=== PATIENT | female | born 1960 | race Caucasian/White ===

== ENCOUNTER → 2016-06-29 | Outpatient (CLI) | payer MEDICARE | LOC: RAD 09:04 | PROVIDERS: ATTEND Family Medicine | DX: R07.89 Other chest pain (principal); J98.11 Atelectasis | CPT/HCPCS: 71260; Q9967 ==

== ENCOUNTER → 2016-07-10 | Outpatient (CLI) | payer MEDICARE ==
[2016-07-10 17:13] LABS: MEAN CORPUSCULAR HEMOGLOBIN 30.4 PG (26.0-34.0); MEAN CORPUSCULAR HGB CONC 33.4 g/dL (31.0-37.0); MEAN CORPUSCULAR VOLUME 91 FL (80-100); MEAN PLATELET VOLUME 10.8 FL (6.0-9.5); PLATELET COUNT 219 10^3uL (150-450); WHITE BLOOD COUNT 6.14 10^3uL (4.0-11.0)
[2016-07-10 17:40] LABS: ALBUMIN 3.9 g/dL (3.4-5.0); CALCULATED IONIZED CALCIUM 3.7 mg/dL (3.8-4.6); TOTAL PROTEIN 7.4 g/dL (6.4-8.5)
[2016-07-10 17:51] LABS: BAND NEUTROPHILS % 0 % (0-6); EOSINOPHILS % 4 % (0-4); LYMPHOCYTES # 1.4 #; MONOCYTES # 0.4 #; MONOCYTES % 7 % (3-11); RBC MORPH NORMAL (NORMAL); SEGMENTED NEUTROPHILS % 66 % (51-67); TOTAL CELLS COUNTED 100
[2016-07-11 16:27] LABS: HEPATITIS A ANTIBODY IGM Negative; HEPATITIS B CORE ABY IGM Negative; HEPATITIS B SURFACE ANTIGEN C Negative
[2016-07-12 13:37] LABS: ANGIO-CONVERTING ENZYMEr 28 U/L (8 - 53)
== END ==
LOC: LAB 16:45
PROVIDERS: ATTEND Internal Medicine Hematology & Oncology
DX: R16.1 Splenomegaly, not elsewhere classified (principal); R68.89 Other general symptoms and signs; R53.83 Other fatigue
CPT/HCPCS: 36415; 80053; 80074; 82164; 83615; 85007; 85027; 86038; 86431; 88184; 88185

== ENCOUNTER 2016-07-22 08:34 | Emergency (ER) | payer MEDICARE ==
[~2016-07-22] VITALS: Ht 170.2 cm; Wt 54.5 kg
[2016-07-22] MEDS ORDERED: morphine INJ 4 MG/ML 1 ML SYRINGE IV ONE (08:50)
[2016-07-22] MEDS ORDERED: KETOROLAC 30 MG/ML (TORADOL) 1 ML VIAL IV ONE (08:50)
[2016-07-22] MEDS ORDERED: NS IV 500 ML 500 ML IV SCH (08:50)
[2016-07-22] MEDS ORDERED: METOCLOPRAMIDE 10 MG/2 ML (REGLAN) VIAL IV ONE (08:50)
[2016-07-22] MEDS ORDERED: diphenhydrAMINE 50 MG/ML INJ (BENADRYL) IV ONE ×2 (08:50→10:05)
[2016-07-22] MEDS ORDERED: HYDROmorphone 1 MG/ML (DILAUDID) SYRINGE IV ONE (10:00)
--- NOTE | 2016-07-22 10:30 | NUR ---
MEPILEX DRESSING OBTAINED FROM MED SURG DEPT & APPLIED TO WOUND JUST ABOVE MEDIAL BUTTOCKS/LOWER BACK. DSG 4X4 SIZE. CL
[2016-07-22 20:17] VITALS: BP 105/62
== END 2016-07-22 10:37 | disposition home or self-care (01) ==
LOC: EDUNIT# 08:34 → ED 08:37
DX: G43.909 Migraine, unspecified, not intractable, without status migrainosus (principal); L89.303 Pressure ulcer of unspecified buttock, stage 3
CPT/HCPCS: 96361; 96374; 96375; 96376; 99284; J1170; J1200; J1885; J2270; J2765; J7040; 99283

== ENCOUNTER → 2016-07-30 | Outpatient (CLI) | payer MEDICARE | LOC: RAD 07:35 | PROVIDERS: ATTEND Surgery | DX: R10.12 Left upper quadrant pain (principal); R93.5 Abnormal findings on diagnostic imaging of other abdominal regions, including retroperitoneum | CPT/HCPCS: 74176 ==

== ENCOUNTER → 2016-08-16 | Outpatient (CLI) | payer MEDICARE ==
[2016-08-16 14:21] LABS: BASOPHILS % (AUTO) 1 % (0-2); EOSINOPHILS # (AUTO) 0.2 10^3uL; EOSINOPHILS % (AUTO) 6 % (0-4); LYMPHOCYTES # (AUTO) 1.4 X10^3; MEAN CORPUSCULAR HEMOGLOBIN 29.4 PG (26.0-34.0); MEAN CORPUSCULAR VOLUME 93 FL (80-100); MEAN PLATELET VOLUME 11.2 FL (6.0-9.5); MONOCYTES # (AUTO) 0.3 X10^3; MONOCYTES % (AUTO) 9 % (3-11); NEUTROPHILS # (AUTO) 1.4 X10^3; NEUTROPHILS % (AUTO) 43 % (51-67); PLATELET COUNT 182 10^3uL (150-450); WHITE BLOOD COUNT 3.28 10^3uL (4.0-11.0)
[2016-08-16 14:26] LABS: ALBUMIN 3.2 g/dL (3.4-5.0); TOTAL PROTEIN 6.5 g/dL (6.4-8.5)
[2016-08-16 14:41] LABS: MEAN CORPUSCULAR HGB CONC 31.6 g/dL (31.0-37.0)
[2016-08-16 19:48] LABS: Prealbumin 12 mg/dL (16-38)
[2016-08-16 20:16] LABS: VITAMIN B 12 >2000 pg/mL (213-816)
== END ==
LOC: LAB 13:47
PROVIDERS: ATTEND Surgery
DX: Z98.84 Bariatric surgery status (principal); D73.89 Other diseases of spleen
CPT/HCPCS: 36415; 80053; 82306; 82607; 84134; 84446; 84590; 84597; 85025

== ENCOUNTER 2016-08-24 11:32 | Emergency (ER) | payer MEDICARE ==
[~2016-08-24] VITALS: Ht 170.2 cm; Wt 57.2 kg
[2016-08-24 11:36] VITALS: BP 119/79
[2016-08-24] MEDS ORDERED: HYDROmorphone 1 MG/ML (DILAUDID) SYRINGE IV ONE ×2 (11:55→13:50)
[2016-08-24] MEDS ORDERED: ONDANSETRON 2 MG/ML (Z0FRAN) 2 ML VIAL IV ONE (11:55)
[2016-08-24] MEDS ORDERED: SODIUM CHLORIDE FLUSH 10 ML SYR IV PRN (12:15)
[2016-08-24] MEDS ORDERED: SODIUM CHLORIDE FLUSH 3 ML SYR IV PRN (12:15)
[2016-08-24 12:17] LABS: BASOPHILS % (AUTO) 1 % (0-2); EOSINOPHILS # (AUTO) 0.1 10^3uL; EOSINOPHILS % (AUTO) 4 % (0-4); MEAN CORPUSCULAR HEMOGLOBIN 29.5 PG (26.0-34.0); MEAN CORPUSCULAR HGB CONC 32.1 g/dL (31.0-37.0); MEAN CORPUSCULAR VOLUME 92 FL (80-100); MEAN PLATELET VOLUME 12.4 FL (6.0-9.5); MONOCYTES # (AUTO) 0.2 X10^3; MONOCYTES % (AUTO) 8 % (3-11); NEUTROPHILS # (AUTO) 1.5 X10^3; NEUTROPHILS % (AUTO) 52 % (51-67); PLATELET COUNT 80 10^3uL (150-450); WHITE BLOOD COUNT 2.85 10^3uL (4.0-11.0)
[2016-08-24 12:19] LABS: BILIRUBIN,URINE Negative (Negative); CLARITY,URINE Clear; COLOR,URINE Yellow; GLUCOSE, URINE (UA) Negative (Negative); LEUKOCYTE ESTERASE ,URINE Negative (Negative); PH,URINE 7.5 (5.0 - 8.0); UROBILINOGEN,URINE 0.2 mg/dL (0.2-1.0)
[2016-08-24 12:24] LABS: ALBUMIN 3.1 g/dL (3.4-5.0); CALCULATED IONIZED CALCIUM 3.8 mg/dL (3.8-4.6); TOTAL PROTEIN 6.6 g/dL (6.4-8.5)
[2016-08-24] MEDS ORDERED: PROMETHAZINE HCL INJ 25 MG in SODIUM CHLORIDE 25 ML IV ONE (12:45)
--- NOTE | 2016-08-24 13:38 | NUR ---
pt asks for blanket
--- NOTE | 2016-08-24 13:44 | NUR ---
pt states nausea is better
--- NOTE | 2016-08-24 14:10 | NUR ---
pt and mother stated they were out of dilaudid. told pt that dr cardoza ordered the ultra, for take home meds
== END 2016-08-24 13:55 | disposition home or self-care (01) ==
LOC: ED 11:33
DX: R10.32 Left lower quadrant pain (principal); R10.31 Right lower quadrant pain; R11.2 Nausea with vomiting, unspecified; D72.819 Decreased white blood cell count, unspecified; D69.6 Thrombocytopenia, unspecified; R19.04 Left lower quadrant abdominal swelling, mass and lump
CPT/HCPCS: 36415; 76705; 80053; 81003; 85025; 86140; 99284; J1170; J2405; J2550; J7030; 96361; 96365; 96375; 96376

== ENCOUNTER → 2016-08-28 | Outpatient (REF) | payer MEDICARE ==
[~2016-08-28] MED LIST: BUSP5TAB59 PO; CALC200T5 PO; CARI250T PO; CEPH500T PO; CLON0.5T3; CRB100CT PO; CYAN100088 PO; CYCL-265 PO; DICL100G13 TOP; DOCU-163 PO; DULO20CA PO; ESOM20CA; ESOM40CA52 PO; ESTROVEN ENER400 MCG PO; FENTANYL PATCH PO; FERR159T3 PO; FURO-124 PO; GBPN600T PO; HLP.5T; HYDR-3754 PO; HYDR8TAB24 PO; LEVO25TA5 PO; MECL-105 PO; METH750T3 PO; METO50TA7; MIRT15TA98 PO; MULT-954 PO; ONDA4TAB8 PO; POTA25TA7 PO; SERT25TA PO; SERT50TA9 PO; TEMA15CA6 PO; TOPI200T8 PO; TRAZ100T92 PO; TRM50T PO
== END ==
LOC: LAB 15:08
PROVIDERS: ATTEND Family Medicine
DX: R19.7 Diarrhea, unspecified (principal)
CPT/HCPCS: 87507

== ENCOUNTER 2016-09-25 08:50 | Outpatient (RCR) | payer MEDICARE ==
[2016-09-26] MEDS ORDERED: EST45C VG (14:03)
[2016-09-26] MEDS ORDERED: TRM50T PO (14:03)
[2016-09-26] MEDS ORDERED: TRAZ-28 PO (14:03)
[2016-09-26] MEDS ORDERED: FNT75TD TD (16:55)
[2016-09-26] MEDS ORDERED: HDR2T PO (16:55)
[2016-09-26] MEDS ORDERED: FERR325T36 PO (16:55)
[2016-09-26] MEDS ORDERED: POTA-57 PO (16:55)
[2016-09-28] MEDS ORDERED: TRM50T PO (17:25)
[2016-10-05] MEDS ORDERED: HYDR-3702 PO (17:13)
== END 2016-10-31 19:23 | disposition home or self-care (01) ==
LOC: LAB 08:50 → EDSTATUS 09-27 07:58 → LAB 10-31 19:23
PROVIDERS: ATTEND Surgery
DX: D73.89 Other diseases of spleen (principal)
CPT/HCPCS: 36415; 84134; 86850; 86900; 86901; 86920

== ENCOUNTER 2016-09-26 08:19 | Inpatient (IN) | payer MEDICARE ==
[2016-09-26] VITALS (11 sets, daily range): BP systolic 100–121; BP diastolic 57–78
[~2016-09-26] VITALS: Ht 165.1 cm; Wt 53.2 kg
[~2016-09-26 08:19] MED LIST changes: +LACTATED RINGERS 1,000 ML IV SCH; +SCOPOLAMINE 1.5 MG (TRANSDERM-SCOP) PATCH TD ONE; +SODIUM CHLORIDE FLUSH 3 ML SYR IV PRN; +SODIUM CHLORIDE VIAL (PF) 10 ML IV ONE; +VANCOMYCIN 1,000 MG in SODIUM CHLORIDE 250 ML IV SCH
--- OUTSIDE RECORDS SUMMARY | 2016-09-26 08:23 | XMS REPORT | Continuity of Care Document ---
Author Author [facility] Organization [facility] Address Unknown Phone Unavailable Care Team Providers Care Washing Machine Assembler Name Role Phone Hina Vega PCP Unavailable Source Comments Some departments are not documenting in the electronic medical record. If you do not see the information that you expected, contact Release of Information in the Health Information Management department at [phone] for further assistance in locating additional records.[facility] Active Allergies and Adverse Reactions Allergen Noted Date Severity Reactions Comments Darvocet 10/03/2012 SEE COMMENTS insomnia Dilantin 10/03/2012 SEE COMMENTS Caused coma Current Medications Prescription Sig. Disp. Refills Start End Date Status Date DULoxetine DR (CYMBALTA) Take 60 mg by mouth Active 60 mg capsule daily. meclizine (ANTIVERT) 25 Take 25 mg by mouth three Active mg tablet times daily. esomeprazole DR(+) Take 40 mg by mouth every Active (NEXIUM) 40 mg capsule morning. carisoprodol(+) (SOMA) Take 350 mg by mouth Active 350 mg tablet three times daily as needed. fentaNYL (DURAGESIC) 50 Apply 1 Patch to top of Active mcg/hr patch skin as directed every 72 hours temazepam (RESTORIL) 15 Take 15 mg by mouth at Active mg capsule bedtime as needed. clonazePAM (KLONOPIN) 0.5 Take 0.5 mg by mouth Active mg tablet three times daily. 1 in am 2 at bedtime Calcium Carbonate-Vit Take 2 Tabs by mouth Active D3-Min (CALCIUM-VITAMIN daily. D) 600 mg calcium- 400 unit Tab hydromorphone(+) Take 8 mg by mouth every Active (DILAUDID) 8 mg tablet 4 hours as needed levothyroxine (SYNTHROID) Take 25 mcg by mouth Active 25 mcg tablet every morning. metoprolol XL (TOPROL XL) Take 25 mg by mouth every Active 25 mg tablet morning. ziprasidone (GEODON) 20 Take 80 mg by mouth at Active mg capsule bedtime daily. potassium chloride SR Take 20 mEq by mouth Active (K-DUR) 20 mEq tablet twice daily. furosemide (LASIX) 40 mg Take 40 mg by mouth twice Active tablet daily. Aspirin 81 mg Tab Take 81 mg by mouth Active daily. carBAMazepine (TEGRETOL) Take 1 Tab by mouth three 90 Tab 2 10/11/19 Active 200 mg tablet times daily. 13 mineral oil/hydrophilic Apply to skin lesions 1 Container 2 10/11/19 Active petrolatum (AQUAPHOR) three times daily as 13 Oint needed. camphor/menthol (SARNA) Apply to skin lesions TID 1 Bottle 2 10/11/19 Active 0.5/0.5 % Lotn prn itching. 13 Active Problems Problem Noted Date Seizures (HCC) Hernia of unspecified site of abdominal cavity without mention of obstruction or gangrene GERD (gastroesophageal reflux disease) MRSA (methicillin resistant staph aureus) culture positive Anxiety Depression Nonepileptic episode (HCC) COPD (chronic obstructive pulmonary disease) (HCC) Bipolar 1 disorder (HCC) Hypothyroid Immunizations Name Dates Previously Given Next Due Pneumococcal Vaccine 10/07/2012 (23-Luanne Adult) Social History Tobacco Use Types Packs/Day Years Used Date Former Smoker Cigarettes Quit: 06/06/2009 Alcohol Use Drinks/Week oz/Week Comments No quit 2009 Last Filed Vital Signs Vital Sign Reading Time Taken Blood Pressure 118/68 10/10/2012 11:51 AM CDT Pulse 69 10/10/2012 11:51 AM CDT Temperature 36.7 C (98.1 F) 10/10/2012 11:51 AM CDT Respiratory Rate - - Height 1.676 m (5' 6") 10/10/2012 4:43 PM CDT Weight 130.182 kg (287 lb) 10/10/2012 4:43 PM CDT Body Mass Index 46.35 10/10/2012 4:43 PM CDT Oxygen Saturation 97% 10/10/2012 11:51 AM CDT Plan of Care Health Maintenance Due Date Last Done Comments Hepatitis C Screening 1960 Physical (Comprehensive) 08/05/1967 Exam Pertussis Vaccine 08/05/1971 Tetanus Vaccine 1977 Cervical Cancer Screening 1981 Breast Cancer Screening 2000 Colorectal Cancer 2010 Screening Influenza Vaccine 02/01/2017 Results from Last 3 Months Not on file
[2016-09-26] MEDS ORDERED: LIDOCAINE PF 1% (XYLOCAINE) 2 ML VIAL INJ ONE (08:29)
[2016-09-26] MEDS ORDERED: SCOPOLAMINE 1.5 MG (TRANSDERM-SCOP) PATCH TD ONE (08:30)
[2016-09-26] MEDS ORDERED: ALBUTEROL 0.083% NEB SOLUTION 2.5 MG/3 ML VIAL INH ONE (08:30)
[2016-09-26] MEDS ORDERED: ENOXAPARIN 40 MG/0.4 ML (LOVENOX) SYR SC SCH (09:25)
--- NOTE | 2016-09-26 09:52 | NUR ---
BS Clear pre and Post Treatment.
[2016-09-26] MEDS ORDERED: MIDAZOLAM 2 MG/2 ML (VERSED) VIAL ONE (10:51)
[2016-09-26] MEDS ORDERED: SUFENTANIL 50 MCG/ML ONE (10:51)
[2016-09-26] MEDS ORDERED: PROPOFOL 20 ML IV ONE (10:53)
[2016-09-26 11:44] LABS: BILIRUBIN,URINE Negative (Negative); CLARITY,URINE Clear; COLOR,URINE Yellow; GLUCOSE, URINE (UA) Negative (Negative); LEUKOCYTE ESTERASE, URINE Negative (Negative); PH,URINE 7.5 (5.0 - 8.0); UROBILINOGEN,URINE 0.2 mg/dL (0.2-1.0)
[2016-09-26] MEDS ORDERED: diphenhydrAMINE 50 MG/ML INJ (BENADRYL) ONE (12:07)
[2016-09-26] MEDS ORDERED: ROCURONIUM 50 MG/5 ML (ZEMURON) VIAL IV ONE (12:07)
[2016-09-26] MEDS ORDERED: ONDANSETRON 2 MG/ML (Z0FRAN) 2 ML VIAL ONE (12:07)
[2016-09-26] MEDS ORDERED: NEOSTIGMINE 1 MG/ML SYRINGE ONE (13:18)
[2016-09-26] MEDS ORDERED: GLYCOPYRROLATE 0.2 MG/ML (ROBINUL) 1 ML VIAL ONE (13:18)
[2016-09-26] MEDS ORDERED: ROPIVACAINE 0.2% 100 ML ONE (13:23)
[2016-09-26] MEDS ORDERED: TRM50T PO (14:03)
[2016-09-26] MEDS ORDERED: EST45C VG (14:03)
[2016-09-26] MEDS ORDERED: TRAZ-28 PO (14:03)
[2016-09-26] MEDS ORDERED: ACETAMINOPHEN 500 MG TAB (TYLENOL) PO PRN ×2 (14:05→14:15)
[2016-09-26] MEDS ORDERED: KETOROLAC 30 MG/ML (TORADOL) 1 ML VIAL IV PRN ×2 (14:05→14:15)
[2016-09-26] MEDS ORDERED: HYDROmorphone PCA 30 MG/30 ML (DILAUDID) VIAL IV PRN ×2 (14:05→14:15)
[2016-09-26] MEDS ORDERED: ONDANSETRON 2 MG/ML (Z0FRAN) 2 ML VIAL IV PRN (14:05)
[2016-09-26] MEDS ORDERED: 1/2 NS W/KCL 20 MEQ/L 1,000 ML IV SCH (14:05)
[2016-09-26] MEDS ORDERED: HYDROmorphone 1 MG/ML (DILAUDID) SYRINGE ONE (14:07)
--- OUTSIDE RECORDS SUMMARY | 2016-09-26 14:20 | XMS REPORT | Continuity of Care Document ---
Author Author [facility] Organization [facility] Address Unknown Phone Unavailable Care Team Providers Care De Icer Name Role Phone Hina Vega PCP Unavailable Source Comments Some departments are not documenting in the electronic medical record. If you do not see the information that you expected, contact Release of Information in the Health Information Management department at [phone] for further assistance in locating additional records.[facility] Active Allergies and Adverse Reactions Allergen Noted [...]
--- NOTE | 2016-09-26 14:35 | NUR ---
To room 301 per hospital bed - reports "pain" - "need something for pain" - abd incision LUQ dry and intact - on Q pump tubing beneath tegaderm - biopsy site drsg dry and intact - awake alert and oriented - IV sites X2 RAC and LFA
[2016-09-26] MEDS ORDERED: NS FLUSH 10 ML PRN IV (14:40)
--- NOTE | 2016-09-26 14:41 | OPERATIVE REPORT ---
DATE OF OPERATION: 09/26/2016 PRE-OPERATIVE DIAGNOSIS: 1. Radiographic abnormality of the spleen, suspicious for lymphoma. 2. Soft tissue abnormality, abdominal wall left lower quadrant. POST-OPERATIVE DIAGNOSIS: 1. Radiographic abnormality of the spleen, suspicious for lymphoma. 2. Soft tissue abnormality, abnormal wall left lower quadrant. OPERATIVE PROCEDURE: 1. Splenectomy. 2. Biopsy of abdominal wall lesion SURGEON: Efren Miranda MD VIOLIN REPAIRER: Lewis Keyes MD and Betty Cr RN FA ANESTHESIA: General endotracheal anesthetic, Rodrick Leger CRNA INDICATIONS: The patient is a 56-year-old referred by Dr. Clemons after a recent CT and PET scan showed abnormalities in the spleen suggestive of lymphoma. She had presented with a history of fever, chills and night sweats and splenectomy was requested for diagnostic purposes. She presents today for this procedure. DESCRIPTION OF PROCEDURE: The patient was informed of the risks and benefits and agreed to proceed. She was administered preoperative IV antibiotics in the form of vancomycin due to her history of MRSA infection. She also received Lovenox preoperatively for prophylaxis, with a history of pulmonary embolism in the distant past. She was taken to the operating room and placed supine on a standard operating table. She was administered general endotracheal anesthetic and a Puckett catheter was placed to drainage in the bladder. When properly anesthetized her abdomen was prepped and draped in standard sterile fashion. The 14-gauge core needle device was used to take several cores from this mass in the left lower quadrant, but the contents of the biopsies appeared to be more of a thickened-brownish liquid, suggestive of a resorbing hematoma. A Steri-Strip was placed over the small incision that was made for the biopsies. Attention was then turned to the splenectomy. A left subcostal incision was made with the #10 blade scalpel extending approximately 20 cm in length. Cautery was used to dissect through the subcutaneous tissue and to expose the underlying muscular fascia. The anterior rectus sheath was opened and then this was extended laterally to include the internal oblique and external oblique fascia. The underlying muscles were opened including the rectus, which was opened over the handles of an [place] retractor. The posterior rectus sheath was then carefully elevated and opened with the #10 blade scalpel and the peritoneum was entered. This incision was carried medially and laterally with cautery being careful to protect the underlying abdominal organs. There were adhesions between small bowel and the fascia above the incision that were carefully taken down for exposure. 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 We were able to see the spleen and the omentum adherent to it, which was also carefully dissected down to expose the inferior pole of the spleen. The attachments to the left kidney were then carefully divided with the Metzenbaum scissors as well as the attachments between the superior and medial aspect of the spleen to the diaphragm, while retracting the spleen medially. The gastric fundus was then retracted medially and the short gastric vessels were divided with the Enseal device to expose the hilum of the spleen and separate the gastric remnant from the splenic hilum. The spleen was then able to be brought up into the wound for better exposure. The splenic artery and splenic vein were controlled separately with Pean clamps and divided. The artery was suture ligated with #0 silk, then tied off with #0 Vicryl and then a large hemoclip was placed. The splenic vein was tied off with a 2-0 silk ligature. The specimen was removed. We checked for hemostasis in the left upper quadrant and it appeared to be complete. We irrigated with warm saline and aspirated the contents. The posterior rectus sheath, along with the transversales fascia was closed with running #0 Vicryl. The external oblique and internal oblique were then closed in a single layer along with the anterior rectus sheath with running #0 PDS. A Q-pump catheter was placed in the wound from below and secure to the skin with Dermabond and Steri-Strip. The subcutaneous tissue was reapproximated above the catheter with interrupted 3-0 Vicryl and the skin was closed with jac. The patient tolerated the procedure without complications. Path is pending. Estimated blood loss was <200cc. Urine output intraoperatively was 900cc and 3000cc of crystalloid was given in the OR.
--- NOTE | 2016-09-26 15:10 | NUR ---
Initiated Dilaudid FURNACE REPAIRER HELPER. Settings double checked with Yee Cohen RN. Patient was educated on how to use the FURNACE REPAIRER HELPER and the safety features.
[2016-09-26] MEDS: 1/2 NS W/KCL 20 MEQ/L 1,000 ML IV SCH (15:24)
--- NOTE | 2016-09-26 16:30 | NUR ---
Patient is sleeping. Resp. even and unlabored. No non-verbal indication of pain.
[2016-09-26] MEDS ORDERED: POTA-57 PO (16:55)
[2016-09-26] MEDS ORDERED: FNT75TD TD (16:55)
[2016-09-26] MEDS ORDERED: HDR2T PO (16:55)
[2016-09-26] MEDS ORDERED: FERR325T36 PO (16:55)
--- NOTE | 2016-09-26 18:10 | NUR ---
MED REC COMPLETE--current med list obtained from external med history application and patient report.
--- NOTE | 2016-09-26 18:30 | NUR ---
V.S. remain stable. Patient wakes easily to the sound of staff in the room. She has used a total of 2 mg. of Dilaudid since the SALES EXECUTIVE INSURANCE was initiated.
[2016-09-26] MEDS: ONDANSETRON 2 MG/ML (Z0FRAN) 2 ML VIAL IV PRN (18:55)
[2016-09-26] MEDS: GABAPENTIN 600 MG (NEURONTIN) TAB PO SCH (18:56)
--- NOTE | 2016-09-26 19:01 | NUR ---
Ambulated to toilet c SBA X1- reports voided small - bladder scan 311
--- NOTE | 2016-09-26 19:45 | NUR ---
Called Dr. Keyes to discuss end tidal CO2 monitor and continuous sat. monitor. He did not want to have either monitor ordered for the patient unless she appears to be excessively sedated. HEAT TREATING BLUER has no continuous infusion programmed and the 4 hour lockout is 2 mg of Dilaudid.
--- NOTE | 2016-09-26 20:15 | NUR ---
Pt is resting in bed visiting on phone, alert and oriented x 4, Resp are even and nonlabored, LCTAB, HRRR, BS are active x 4 quadrants, Dressing is clean, dry, and intact. Dilaudid ROLL SLICING MACHINE TENDER is keeping pain under control, rates pain 3/10 at this time. IV is infusing without difficulty, no redness, swelling, or s/s of infection noted at this time. Denies needs at this time. Call light is in reach, will continue to monitor.
--- NOTE | 2016-09-26 20:27 | NUR ---
Instructed pt. on IS, does fair at 750 x8. Pt. still a little drowsy post op. Room air at this time, 95%.
[2016-09-26] MEDS: busPIRone 5 MG (BUSPAR) TAB PO SCH (21:00)
[2016-09-26] MEDS ORDERED: TEMAZEPAM 15 MG (RESTORIL) CAP PO SCH (21:00)
[2016-09-26] MEDS: toPIRamate 100 MG (TOPAMAX) TAB PO SCH (21:03)
[2016-09-26] MEDS: MIRTAZAPINE 15 MG (REMERON) TABLET PO SCH (21:03)
[2016-09-26] MEDS: DOCUSATE SODIUM 100 MG (COLACE) CAP PO SCH (21:03)
[2016-09-27] VITALS (8 sets, daily range): BP systolic 92–113; BP diastolic 58–69
[2016-09-27] MEDS: ONDANSETRON 2 MG/ML (Z0FRAN) 2 ML VIAL IV PRN ×2 (00:13→08:34)
--- NOTE | 2016-09-27 00:13 | NUR ---
Pt reports feeling nauseated, gave Zofran 4 mg SIVP for discomfort. Will continue to monitor.
--- NOTE | 2016-09-27 05:22 | NUR ---
Pt is currently resting in bed asleep, call light is in reach, will continue to monitor.
[2016-09-27] MEDS: 1/2 NS W/KCL 20 MEQ/L 1,000 ML IV SCH (05:37)
[2016-09-27] MEDS: ENOXAPARIN 40 MG/0.4 ML (LOVENOX) SYR SC SCH (08:36)
[2016-09-27] MEDS: SERTRALINE 50 MG (ZOLOFT) TABLET PO SCH (08:36)
[2016-09-27] MEDS: busPIRone 5 MG (BUSPAR) TAB PO SCH ×2 (08:37→21:00)
[2016-09-27] MEDS: toPIRamate 100 MG (TOPAMAX) TAB PO SCH ×2 (08:38→21:02)
[2016-09-27] MEDS: GABAPENTIN 600 MG (NEURONTIN) TAB PO SCH ×3 (08:38→17:21)
--- NOTE | 2016-09-27 08:43 | NUR ---
NUTRITION ASSESSMENT Level 1 Patient: Yee Child Age/Sex: 56/F Date Screened: 09-27-16 Weight: 117.0#/53.2 kg Height: 65 inches Primary Diagnosis: splenic lesions/splenectomy Diet Order: none Relevant labs: N/A Food allergies: N Nutrition Assessment Criteria Age over 80: N Body Mass Index (BMI) under 19: N Admission Screening Indicates Risk? 6 points Moderate/High Risk Diagnosis: 6 points TPN or PPN: N NPO or clear liquid diet: Yes Serum Glucose <70 or >180: N/A Hgb A1c >6.7: N/A Total: 12 points Risk Screen: __ Patient at low nutritional risk based on available data; reevaluate in 5-7 days __ Patient at moderate nutritional risk based on available data; reevaluate in 3-5 days _X_ Patient at high nutritional risk; complete Nutrition Assessment within 48 hours of admission.
--- NOTE | 2016-09-27 08:46 | Progress Note-A/P (E) ---
Progress Note Subjective Subjective She had a good night. She was asking about a few medications that haven't been restarted. Objective VS Vital Signs Date Time Temp Pulse Resp B/P Pulse Ox O2 Delivery O2 Flow Rate FiO2 09/27/16 07:21 98.1 76 18 110/68 100 Room air I&O I & O Past 24 hrs 09/27/16 07:00 Intake Total 780 ml Output Total 1100 ml Balance -320 ml Intake IV Total 780 ml Output Urine Total 1100 ml Current Medications Current Medications Potassium Chloride/Sodium Chloride 1,000 ml @ 70 mls/hr [id number] IV Last administered on 09/27/16 05:37; Admin Dose 70 MLS/HR; Start 09/26/16 at 14:15 Hydromorphone/ Sodium Chloride 1 vial PRN PRN IV Last administered on 15:13; Admin Dose 1 VIAL; Start 09/26/16 at 14:15 Acetaminophen 1,000 mg Q6H PRN PO; Start 09/26/16 at 14:15 Ketorolac Tromethamine 30 mg Q6H PRN IV; Start 09/26/16 at 14:15; Stop 10/01/16 at 14:04 Enoxaparin Sodium 40 mg Q24HR SC; Start 09/27/16 at 09:00 Ondansetron HCl 4 mg Q4H PRN IV Last administered on 09/27/16 00:13; Admin Dose 4 MG; Start 09/26/16 at 14:15 Sodium Chloride 3 ml DAILY IV; Start 09/27/16 at 09:00 Sodium Chloride 10 ml UD PRN IV; Start 09/26/16 at 14:40 Buspirone HCl 7.5 mg BID PO; Start 09/26/16 at 21:00 Docusate Sodium 100 mg HS PO Last administered on 09/26/16 21:03; Admin Dose 100 MG; Start 09/26/16 at 21:00 Gabapentin 600 mg TID PO Last administered on 09/26/16 18:56; Admin Dose 600 MG ; Start 09/26/16 at 18:00 Mirtazapine 15 mg HS PO Last administered on 09/26/16 21:03; Admin Dose 15 MG; Start 09/26/16 at 21:00 Sertraline HCl 50 mg DAILY PO; Start 09/27/16 at 09:00 Topiramate 200 mg BID PO Last administered on 09/26/16t 21:03; Admin Dose 200 MG ; Start 09/26/16 at 21:00 General Up in chair, awake, alert. CV S1S2 RRR Lungs Clear bilaterally Abdomen Soft, incision clean, dry with no erythema or drainage. Extremities No edema Integumentary No unusual findings Neuro Grossly normal Labs, Most Recent- Laboratory Results Past 24 Hrs 09/26/16 09:16: Potassium Level 3.7 09/26/16 11:15: Urine Bilirubin Negative, Urine Blood Negative, Urine Clarity Clear, Urine Collection Type Catheter, Urine Color Yellow, Urine Glucose (UA) Negative, Urine Ketones Negative, Urine Leukocyte Esterase Negative, Urine Nitrite Negative, Urine Protein Negative, Urine Specific Stirling 1.010, Urine Urobilinogen 0.2, Urine pH 7.5 24 Hr Result Diagram CBC BMP Last 24 Hrs 09/26/16 09:16 Assessment POD#1 splenectomy Plan Will restart these additional meds, and advance to full liquid diet. HERBERTH ARZATE MD Sep 27, 2016 08:46
[2016-09-27] MEDS ORDERED: ENOXAPARIN 40 MG/0.4 ML (LOVENOX) SYR SC SCH (09:00)
[2016-09-27] MEDS: NS FLUSH 3 ML DAILY IV SCH (09:00)
--- NOTE | 2016-09-27 10:00 | NUR ---
Dr. Miranda has been in room this AM to see patient. Pt asks to have many medications continued- Dr. Miranda will cont. On-Q pump in place. IVF infusing as ordered. ADMINISTRATIVE ASSOCIATE within reach. Pain managed by ADMINISTRATIVE ASSOCIATE.
[2016-09-27] MEDS: PANTOPRAZOLE 40 MG (PROTONIX) TAB PO SCH ×2 (10:36→21:02)
--- NOTE | 2016-09-27 11:20 | NUR ---
NUTRITION ASSESSMENT Level II Patient: Yee Child Age/Sex: 56/F Date Assessed: 09-27-16 ASSESSMENT Pertinent History: Patient admitted after splenectomy, which was suggestive of lymphoma. She normally follows a high protein diet with small meals six times/day, plus Boost. PMHx includes ilda-en-y gastric bypass. Prior to gastric bypass surgery she weighed 249# in 2012. Meds/Nutrition: Protonix, Remeron, Colace Weight: 117#/53.2 kg Height: 65 inches Body Mass Index (BMI): 19.5 [place] Body Weight : 125#/56.8 kg % IBW: 93% GASTROINTESTINAL Appetite: good, eating 75% CL Diet Order: just advanced to [place] Unintentional loss of >10 lbs. in 3 months: N Difficult to chew/swallow: N Diabetes: N Relevant Labs: N/A Calculations for Nutritional Assessment Estimated calorie needs: 25-28 kcals/kg = 1,325-1,480 kcals Estimated protein needs: 1.3-1.5 g/kg = 68-79 g./day DIAGNOSIS 1. Nutrition Diagnosis: Increased protein needs related to recent surgery and hx. gastric bypass as evidenced by POD #1 from spleenectomy and usual diet high-protein with 6 small meals/day, including Boost at home. NUTRITIONAL INTERVENTION Goal: Patient will receive adequate nutrition to meet her needs. Plan: Will monitor intake for adequacy and tolerance to diet as advanced. Will send Ensure on every tray even after diet is advanced to solid foods. MONITORING & EVALUATION __ Monitor patients menu selections _X_ Monitor patients food intake per nursing notes __ Monitor NPO/clear liquid days __ Monitor lab values __ Monitor I&O __ Other
[2016-09-27] MEDS ORDERED: NALOXONE 0.4 MG/ML (NARCAN) 1 ML VIAL IV PRN (11:35)
[2016-09-27] MEDS: MECLIZINE 25 MG (ANTIVERT) TABLET PO PRN ×2 (11:54→17:21)
[2016-09-27] MEDS: METHOCARBAMOL 500 MG (ROBAXIN) TABLET PO SCH ×3 (11:54→21:02)
[2016-09-27] MEDS: CYANOCOBALAMIN 1000 MCG (VITAMIN B-12) TABLET PO SCH ×2 (11:55→21:02)
--- NOTE | 2016-09-27 15:13 | NUR ---
Patient has ambulated halls x2 excursions today. AMbulated indep without difficulty. Visitors all day. MEDICAL RECORD ASSISTANT adequately managing pain thus far. Has been up in chair all shift. calls appropriately. Has been advanced to full liquid diet.
--- NOTE | 2016-09-27 17:52 | NUR ---
Pt up in chair, states she has had more abd cramping - states she feels the need to have a BM but feels constipated. Dr. Miranda orders Miralax PRN. Pt given scheduled meds without difficulty. Pleasant and cooperative. SUMMER COUNSELOR remains in place and controlling pain. On-Q pump in place.
--- NOTE | 2016-09-27 18:10 | NUR ---
Pt. using IS on her own @ 1000+. Room air 96%.
[2016-09-27] MEDS: POLYETHYLENE GLYCOL 17 GM (MIRALAX) PACKET PO PRN (18:13)
--- NOTE | 2016-09-27 18:18 | NUR ---
Miralax given as ordered with Tomato Juice at patient request.
--- NOTE | 2016-09-27 19:15 | NUR ---
Pt is resting in bed visiting on phone, alert and oriented x 4, Resp are even and nonlabored, LCTAB, HRRR, BS are active x 4 quadrants, Dressing is clean, dry, and intact. Dilaudid MOTOR VEHICLES SUPERVISOR is keeping pain under control, rates pain 3/10 at this time. IV is infusing without difficulty, no redness, swelling, or s/s of infection noted at this time. Denies needs at this time. Call light is in reach, will continue to monitor.
[2016-09-27] MEDS ORDERED: traZODone 50 MG (DESYREL) TABLET PO SCH (21:00)
[2016-09-27] MEDS: MIRTAZAPINE 15 MG (REMERON) TABLET PO SCH (21:02)
[2016-09-27] MEDS: DOCUSATE SODIUM 100 MG (COLACE) CAP PO SCH (21:02)
[2016-09-28] VITALS (7 sets, daily range): BP systolic 111–121; BP diastolic 74–81
[2016-09-28] MEDS: PANTOPRAZOLE 40 MG (PROTONIX) TAB PO SCH (05:12)
--- NOTE | 2016-09-28 05:23 | NUR ---
Pt is sitting up in bed visiting on phone with her mother, has already had shower and walked 5 laps this am. Denies further needs at this time. Call light is in reach, will continue to monitor.
[2016-09-28] MEDS: ONDANSETRON 2 MG/ML (Z0FRAN) 2 ML VIAL IV PRN (07:59)
--- NOTE | 2016-09-28 08:26 | Progress Note-A/P (E) ---
Progress Note Subjective Subjective Doing well, except for complaints of reflux symptoms. She is hungry for solid food. Objective VS Vital Signs Date Time Temp Pulse Resp B/P Pulse Ox O2 Delivery O2 Flow Rate FiO2 09/28/16 08:18 96.8 80 16 121/81 100 09/28/16 05:21 Room air Current Medications Current Medications Hydromorphone/ Sodium Chloride 1 vial PRN PRN IV Last administered on 15:13; Admin Dose 1 VIAL; Start 09/26/16 at 14:15 Acetaminophen 1,000 mg Q6H PRN PO; Start 09/26/16 at 14:15 Ketorolac Tromethamine 30 mg Q6H PRN IV; Start 09/26/16 at 14:15; Stop 10/01/16 at 14:04 Enoxaparin Sodium 40 mg Q24HR SC Last administered on 09/27/16 08:36; Admin Dose 40 MG; Start 09/27/16 at 09:00 Ondansetron HCl 4 mg Q4H PRN IV Last administered on 09/28/16 07:59; Admin Dose 4 MG; Start 09/26/16 at 14:15 Sodium Chloride 3 ml DAILY IV; Start 09/27/16 at 09:00 Sodium Chloride 10 ml UD PRN IV; Start 09/26/16 at 14:40 Buspirone HCl 7.5 mg BID PO; Start 09/26/16 at 21:00 Docusate Sodium 100 mg HS PO Last administered on 09/27/16 21:02; Admin Dose 100 MG; Start 09/26/16 at 21:00 Gabapentin 600 mg TID PO Last administered on 09/27/16 17:21; Admin Dose 600 MG ; Start 09/26/16 at 18:00 Mirtazapine 15 mg HS PO Last administered on 09/27/16 21:02; Admin Dose 15 MG; Start 09/26/16 at 21:00 Sertraline HCl 50 mg DAILY PO Last administered on 09/27/16 08:36; Admin Dose 50 MG; Start 09/27/16 at 09:00 Topiramate 200 mg BID PO Last administered on 09/27/16 21:02; Admin Dose 200 MG ; Start 09/26/16 at 21:00 Meclizine HCl 25 mg TID PRN PO Last administered on 09/27/16 17:21; Admin Dose 25 MG; Start 09/27/16 at 08:50 Pantoprazole 40 mg BID@07,21 PO Last administered on 09/28/16 05:12; Admin Dose 40 MG; Start 09/27/16 at 09:15 Methocarbamol 750 mg QID PO Last administered on 09/27/16 21:02; Admin Dose 750 MG; Start 09/27/16 at 13:00 Tramadol HCl 100 mg 100 mg Q4H PRN PO; Start 09/27/16 at 08:50 Sodium Chloride 1,000 ml @ 40 mls/hr Q24H IV Last administered on 09/27/16 11: 56; Admin Dose 40 MLS/HR; Start 09/27/16 at 11:35 Naloxone HCl 0.4 mg PRN PRN IV; Start 09/27/16 at 11:35 Cyanocobalamin 1,000 mcg BID PO Last administered on 09/27/16 21:02; Admin Dose 1,000 MCG; Start 09/27/16 at 11:30 Trazodone HCl 50 mg HS PO Last administered on 09/27/16 21:02; Admin Dose 50 MG ; Start 09/27/16 at 21:00 Polyethylene Glycol 17 gm DAILY PRN PO Last administered on 09/27/16 18:13; Admin Dose 17 GM; Start 09/27/16 at 17:54 General Up in chair, awake, alert. CV S1S2 RRR Lungs Clear bilaterally Abdomen Soft, incision clean, dry with no erythema or drainage. Extremities No edema Integumentary No unusual findings Neuro Grossly normal Assessment POD#2 splenectomy Plan Advance diet. Will convert to PO pain meds. HERBERTH ARZATE MD Sep 28, 2016 08:26
[2016-09-28] MEDS: GABAPENTIN 600 MG (NEURONTIN) TAB PO SCH ×2 (08:28→12:51)
[2016-09-28] MEDS ORDERED: HYDROmorphone 1 MG/ML (DILAUDID) SYRINGE IV PRN (08:30)
[2016-09-28] MEDS: METHOCARBAMOL 500 MG (ROBAXIN) TABLET PO SCH ×2 (08:30→12:51)
[2016-09-28] MEDS: SERTRALINE 50 MG (ZOLOFT) TABLET PO SCH (08:31)
[2016-09-28] MEDS: POLYETHYLENE GLYCOL 17 GM (MIRALAX) PACKET PO PRN (08:31)
[2016-09-28] MEDS: CYANOCOBALAMIN 1000 MCG (VITAMIN B-12) TABLET PO SCH (08:31)
[2016-09-28] MEDS: MECLIZINE 25 MG (ANTIVERT) TABLET PO PRN (08:31)
[2016-09-28] MEDS: toPIRamate 100 MG (TOPAMAX) TAB PO SCH (08:31)
[2016-09-28] MEDS: NS FLUSH 3 ML DAILY IV SCH (08:32)
[2016-09-28] MEDS: ENOXAPARIN 40 MG/0.4 ML (LOVENOX) SYR SC SCH (08:34)
[2016-09-28] MEDS: busPIRone 5 MG (BUSPAR) TAB PO SCH (08:34)
--- NOTE | 2016-09-28 10:31 | NUR ---
0800- Pt given zofran for acid reflux. 0815- Dr. Miranda at bedside. 0840- Dilaudid LIQUOR INSPECTOR discontinued at this time with Digna MORROW. Pt had used 1mg since 0600. 0915- On-Q pump dc'd from left abdomen. gauze and tegaderm in place. re-inforced dressing to LUQ. Pt is sitting upright in chair, tolerates regular diet. Ambulates indep in room and halls multiple laps. Verbalizes needs appropriately. Mother has been to visit and left again.
--- NOTE | 2016-09-28 14:22 | NUR ---
Patient tolerated regular diet for lunch- 100% without difficulty. States she hopes to go home this afternoon. Denies increased pain since DC of GLASS ENGRAVER.
--- NOTE | 2016-09-28 17:18 | Progress Note (E) ---
Progress Note Patient feels well with no pain. Eating normally and ambulating. Wants to go home. Vitals stable. In no distress. Abdomen soft, incisions intact. Plan to discharge home. Condition good. JUDE MALDONADO MD Sep 28, 2016 17:18
--- NOTE | 2016-09-28 17:23 | Discharge Instructions (E) ---
Discharge Instructions Instructions Remove dressing tomorrow. May then shower. No new dressing required, unless desired (if clothing irritates incision). Eat normal post gastric bypass diet. Suggest liquid supplements. Activity Instructions No lifting or straining over 20 lbs for [address] until pain free, off pain medications. May take Tylenol instead of pain medication, if desired. Doctor's Appointment Dr. Miranda in 1 week. Discharge Diet: Other (Post gastric bypass diet) JUDE MALDONADO MD Sep 28, 2016 17:23
[2016-09-28] MEDS ORDERED: TRM50T PO (17:25)
--- NOTE | 2016-09-28 17:44 | NUR ---
Discharge instructions reviewed with patient and IV dc'd at this time. Addendum: 09/28/16 at 1745 by Yessi Obregon RN Script x1 given for Tramadol
--- NOTE | 2016-09-28 17:53 | NUR ---
Patient dismissed to home via ambulation with mother, accompanied by Pancho Vickers CNA.
--- NOTE | 2016-10-01 14:40 | DISCHARGE SUMMARY ---
ADMISSION DATE: 09/26/2016 DISCHARGE DATE: 09/28/2016 DISCHARGE DIAGNOSIS: Granulomatous inflammation of spleen. PROCEDURES PERFORMED: Splenectomy on September 26, by Dr. Miranda. PRESENT ILLNESS AND POSITIVE PHYSICAL FINDINGS: The patient is a 56-year-old referred from her plastic surgery specialist, Dr. Delvis Clemons, for splenectomy. She had been found with incidental lesions on the spleen on CT imaging, along with symptoms of fever, chills and night sweats. Due to these cumulative findings, there was concern about lymphoma the spleen and she presented here for elective splenectomy for diagnosis. SIGNIFICANT X-RAY AND LABORATORY DATA: On admission potassium was 3.7. Path report revealed granulomatous inflammation in the spleen with no evidence of malignancy. HOSPITAL COURSE AND TREATMENT: The patient tolerated the surgery well and postoperatively was admitted to the Med/Surg floor for recovery. Her pain was controlled with DIRECTOR Dilaudid, along with ropivacaine via a Q-pump catheter. She did remarkably well in that regard and did not require any oral pain medication prior to dismissal except for the scheduled gabapentin that she normally takes. She tolerated diet advancement and ambulation, and was meeting criteria for discharge on postop day 2. In fact, she initiated the discussion. CONDITION AT DISCHARGE: Stable. DISCHARGE INSTRUCTIONS: 1. She is to follow up in the clinic the following week. 2. She is to avoid heavy lifting or straining for 2 weeks. 3. She was to resume her home pain medications.
== END 2016-09-28 17:50 | disposition home or self-care (01) | DRG 801 ==
LOC: ASC 08:19 → MED/SURG 11:50 → ASC 14:11 → MED/SURG 14:11
PROVIDERS: ADMIT Surgery; ATTEND Surgery
PROC: 07TP0ZZ Resection of Spleen, Open Approach (ICD-10-PCS; principal; 2016-09-26)
PROC: 0JB83ZX Excision of Abdomen Subcutaneous Tissue and Fascia, Percutaneous Approach, Diagnostic (ICD-10-PCS; 2016-09-26)
DX: D73.89 Other diseases of spleen (principal); R19.04 Left lower quadrant abdominal swelling, mass and lump; G40.909 Epilepsy, unspecified, not intractable, without status epilepticus; J44.9 Chronic obstructive pulmonary disease, unspecified; K21.9 Gastro-esophageal reflux disease without esophagitis; E03.9 Hypothyroidism, unspecified; G57.90 Unspecified mononeuropathy of unspecified lower limb; G89.4 Chronic pain syndrome; Z98.84 Bariatric surgery status; Z86.711 Personal history of pulmonary embolism; Z86.14 Personal history of Methicillin resistant Staphylococcus aureus infection
CPT/HCPCS: 36415; 81003; 84132; 88305; 88312; 94640; 94760

== ENCOUNTER 2016-10-05 15:11 | Emergency (ER) | payer OTHER, MEDICARE ==
[~2016-10-05] VITALS: Ht 165.1 cm; Wt 60.3 kg
[~2016-10-05 15:11] MED LIST changes: -HYDR-3702 PO
--- OUTSIDE RECORDS SUMMARY | 2016-10-05 15:16 | XMS REPORT | Continuity of Care Document ---
Author Author [facility] Organization [facility] Address Unknown Phone Unavailable Care Team Providers Care Changer Fixer Name Role Phone Hina Vega PCP Unavailable Source Comments Some departments are not documenting in the electronic medical record. If you do not see the information that you expected, contact Release of Information in the Health Information Management department at [phone] for further assistance in locating additional records.[facility] Active Allergies and Adverse Reactions Allergen Noted [...]
--- OUTSIDE RECORDS SUMMARY | 2016-10-05 15:17 | XMS REPORT | Continuity of Care Document ---
Author Author [facility] Organization [facility] Address Unknown Phone Unavailable Care Team Providers Care Commercial Fisher Name Role Phone Hina Vega PCP Unavailable Source Comments Some departments are not documenting in the electronic medical record. If you do not see the information that you expected, contact Release of Information in the Health Information Management department at [phone] for further assistance in locating additional records.[facility] Active Allergies and Adverse Reactions Allergen [...]
[2016-10-05 15:51] LABS: BASOPHILS % (AUTO) 1 % (0-2); EOSINOPHILS # (AUTO) 0.1 10^3uL; EOSINOPHILS % (AUTO) 2 % (0-4); LYMPHOCYTES # (AUTO) 1.3 X10^3; MEAN CORPUSCULAR HEMOGLOBIN 30.3 PG (26.0-34.0); MEAN CORPUSCULAR HGB CONC 33.4 g/dL (31.0-37.0); MEAN CORPUSCULAR VOLUME 91 FL (80-100); MEAN PLATELET VOLUME 9.3 FL (6.0-9.5); MONOCYTES # (AUTO) 0.9 X10^3; MONOCYTES % (AUTO) 12 % (3-11); NEUTROPHILS # (AUTO) 4.6 X10^3; NEUTROPHILS % (AUTO) 67 % (51-67); PLATELET COUNT 522 10^3uL (150-450); WHITE BLOOD COUNT 6.98 10^3uL (4.0-11.0)
[2016-10-05] MEDS ORDERED: HYDROmorphone 1 MG/ML (DILAUDID) SYRINGE IV ONE (15:55)
[2016-10-05] MEDS ORDERED: ONDANSETRON 2 MG/ML (Z0FRAN) 2 ML VIAL IV ONE (15:55)
[2016-10-05 15:57] LABS: BILIRUBIN,URINE Negative (Negative); CLARITY,URINE Clear; COLOR,URINE Yellow; GLUCOSE, URINE (UA) Negative (Negative); LEUKOCYTE ESTERASE ,URINE Negative (Negative)
[2016-10-05 16:03] LABS: ANION GAP 11.9 MEQ/L (3-15); CALCULATED IONIZED CALCIUM 3.8 mg/dL (3.8-4.6); TOTAL PROTEIN 6.5 g/dL (6.4-8.5)
[2016-10-05] MEDS ORDERED: HYDROcodone/APAP 5 MG/325 MG (NORCO) TAB PO ONE (17:10)
[2016-10-05] MEDS ORDERED: KETOROLAC 30 MG/ML (TORADOL) 1 ML VIAL IV ONE (17:10)
[2016-10-05] MEDS ORDERED: HYDR-3702 PO (17:13)
[2016-10-05 17:31] VITALS: BP 122/68
== END 2016-10-05 17:32 | disposition home or self-care (01) ==
LOC: ED 15:12
DX: S39.011A Strain of muscle, fascia and tendon of abdomen, initial encounter (principal); V43.52XA Car driver injured in collision with other type car in traffic accident, initial encounter; Y93.89 Activity, other specified; Z90.81 Acquired absence of spleen
CPT/HCPCS: 36415; 80053; 81003; 83690; 85025; 85610; 86140; 86850; 86900; 86901; 96374; 96375; 99284; J1170; J1885; J2405; 99283

== ENCOUNTER → 2016-10-05 | Outpatient (CLI) | payer OTHER, MEDICARE ==
[~2016-10-05] MED LIST changes: +EST45C VG; +FERR325T36 PO; +FNT75TD TD; +HDR2T PO; +HYDR-3702 PO; -LACTATED RINGERS 1,000 ML IV SCH; +POTA-57 PO; -SCOPOLAMINE 1.5 MG (TRANSDERM-SCOP) PATCH TD ONE; -SODIUM CHLORIDE FLUSH 3 ML SYR IV PRN; -SODIUM CHLORIDE VIAL (PF) 10 ML IV ONE; +TRAZ-28 PO; -VANCOMYCIN 1,000 MG in SODIUM CHLORIDE 250 ML IV SCH
== END ==
LOC: EMS 11:33
DX: Z53.20 Procedure and treatment not carried out because of patient's decision for unspecified reasons (principal)